=== PATIENT | female | born 1990 | race Caucasian/White ===

== ENCOUNTER → 2017-04-29 11:53 | Outpatient (CLI) | payer MEDICAID, SELFPAY ==
[2017-05-07 03:07] LABS: AFP MoM Value 1.67 (.); AFP Value-EIA 59.5 ng/mL (.); Comment Report (.); DIA MoM Value 2.74 (.); DIA Value-EIA 541.37 pg/mL (.); DSR (By Age) 930 (.); DSR (Second Trimester) 1756 (.); Gestat. Age Based On As provided (.); Insulin Dep Diabetes No (.); Maternal Age At EDD 26.9 YEARS (.); hCG MoM 0.94 (.)
== END ==
PROVIDERS: Visit Provider Obstetrics & Gynecology
DX: Z34.82 Encounter for supervision of other normal pregnancy, second trimester (principal); R30.0 Dysuria; Z3A.00 Weeks of gestation of pregnancy not specified
CPT/HCPCS: 36415; 82105; 82677; 84702; 86336; 87086; 87088

== ENCOUNTER 2017-06-02 20:37 | Outpatient (CLI) | payer MEDICAID, SELFPAY ==
[2017-06-02 20:56] VITALS: BMI 22.5
[2017-06-02 21:56] LABS: ROM Internal Control Test YES-OK TO RESULT pt. (Internal QC); ROM Patient Test Negative (Negative)
--- NOTE | 2017-06-03 02:40 | OB.TRI.NOTE ---
History of Present Illness Date of Service: 06/02/17 Was patient seen by the physician?: No Reason For Visit: R/O LABOR Date of Service: 06/02/17 Final SEVERO: 10/18/17 Gestational age: 20 Weeks and 3 Days History of Present Illness: Reports leaking fluid since yesterday. Home Medications Medication Instructions Recorded Azithromycin [Zithromax Z-Joaquin] 250 mg PO UD #1 box 02/12/17 Naproxen [Naprosyn] 500 mg PO BID #10 tablet 02/12/17 Allergies fexofenadine HCl [From Melyssa] Adverse Reaction (Verified 12/13/16 14:28) Vomiting no allergy to tylenol hydrocodone bitartrate [From Vicodin] Adverse Reaction (Verified 12/13/16 14:28) Itching Physical Exam General: Alert, Oriented x3, Cooperative, No apparent distress Cardiovascular: Regular rate, Regular Rhythm Lungs: Clear to auscultation, Normal air movement Abdomen: Soft, Non Tender, Non-Distended, Gravid, Appropriate for Gestational Age Extremities:: No edema Estimated gestational size: Appropriate for gestational size Cervix Dilation (cm): 0 NST - FHR Rate Baby A Baseline: 130s NST Reactive:: Appropriate for gestational age Uterine Activity:: none Impression/Plan ROM + testing negative. Likely no PPROM. No evidence of gross rupture on exam. Will followup in the office.
== END 2017-06-02 22:15 | disposition home or self-care (01) ==
LOC: WPOUT 20:53 → WP 20:54
PROVIDERS: Visit Provider Obstetrics & Gynecology
DX: Z34.92 Encounter for supervision of normal pregnancy, unspecified, second trimester (principal); Z3A.00 Weeks of gestation of pregnancy not specified
CPT/HCPCS: 59050; 84112; 99218; G0378

== ENCOUNTER 2017-06-05 13:40 | Emergency (ER) | payer MEDICAID, SELFPAY ==
[2017-06-05 13:41] VITALS: BP 123/75; PULSE 93; RESP 16; TEMP 36.2; O2SAT 99; BMI 21.1
--- NOTE | 2017-06-05 14:00 | ED.VISSUMM ---
- ER Visit Summary Date of Service: 06/05/17 Chief Complaint: [] Dental pain History of Present Illness: The patient is a 26 F [] complaining of dental pain in the left lower and upper aspect of her posterior teeth. Patient reports she saw her dentist 4 days ago who did some work and has had some discomfort since then. She reports she is 22 weeks has been taking Tylenol every 4 hours without relief. Denies fevers. Denies nausea and vomiting. No other complaints at this time. She does report that she is smoking during . Physical Examination: [] Afebrile, vital signs stable. 26-year-old female in no acute distress. Cardiovascular exam is regular rate and rhythm. Lungs are clear to auscultation. Abdomen is soft and nontender. HEENT exam shows focal dental decay without obvious gingival abscess and slight gingival swelling on the left side. Test Results: [] None. Emergency Department Course and Treatment: [] Patient given 1 oxycodone tablet and 1 Pen-Vee K tablet. Prescription for Pen-Vee K was provided. Patient was encouraged to follow-up with her dentist. Treatment Plan: [] Follow-up with dentist and [facility]. Disposition: [] Discharge, stable. Impression: [] Odontalgia Dental caries This note was generated with [employer] dictation software. It may contain incorrect words, spelling, and punctuation that were not noted in review of the chart prior to signing ED Disposition - Plan for ED Patient: Chief Complaint: Dental Referrals: Care Physician,No Primary [Primary Care Provider] -
--- NOTE | 2017-06-05 14:03 | ED.DCSUM_ITS ---
- ER Visit Summary Date of Service: 06/05/17 Chief Complaint: [] Dental pain History of Present Illness: The patient is a 26 F [] complaining of dental pain in the left lower and upper aspect of her posterior teeth. Patient reports she saw her dentist 4 days ago who did some work and has had some discomfort since then. She reports she is 22 weeks has been taking Tylenol every 4 hours without relief. Denies fevers. Denies nausea and vomiting. No other complaints at this time. She does report that she is smoking during . Physical Examination: [] Afebrile, vital signs stable. 26-year-old female in no acute distress. Cardiovascular exam is regular rate and rhythm. Lungs are clear to auscultation. Abdomen is soft and nontender. HEENT exam shows focal dental decay without obvious gingival abscess and slight gingival swelling on the left side. Test Results: [] None. Emergency Department Course and Treatment: [] Patient given 1 oxycodone tablet and 1 Pen-Vee K tablet. Prescription for Pen- Vee K was provided. Patient was encouraged to follow-up with her dentist. Treatment Plan: [] Follow-up with dentist and [facility]. Disposition: [] Discharge, stable. Impression: [] Odontalgia Dental caries This note was generated with [employer] dictation software. It may contain incorrect words, spelling, and punctuation that were not noted in review of the chart prior to signing ED Disposition - Plan for ED Patient: Chief Complaint: Dental Referrals: Care Physician,No Primary [Primary Care Provider] -
--- NOTE | 2017-06-05 14:03 | ED.DEP ---
ED Disposition - Plan for ED Patient: Disposition: Home or Assisted Living Chief Complaint: Dental Instructions: ED Tooth Pain Prescriptions: Penicillin Vk [Pen-Vee K 250MG] 500 mg PO 4X/DAY #40 tab Referrals: Care Physician,No Primary [Primary Care Provider] -
[2017-06-05] MEDS: Penicillin Vk 250 MG Tablet 500 MG PO (14:08)
[2017-06-05] MEDS: oxyCODONE 5 MG Tablet PO (14:08)
== END 2017-06-05 14:23 | disposition home or self-care (01) ==
LOC: ED 14:20
PROVIDERS: Emergency Provider Emergency Medicine
DX: O99.612 Diseases of the digestive system complicating pregnancy, second trimester (principal); K02.9 Dental caries, unspecified; K08.89 Other specified disorders of teeth and supporting structures; O99.332 Smoking (tobacco) complicating pregnancy, second trimester; Z79.899 Other long term (current) drug therapy; Z3A.22 22 weeks gestation of pregnancy
CPT/HCPCS: 99283

== ENCOUNTER → 2017-07-19 10:03 | Outpatient (CLI) | payer MEDICAID, SELFPAY ==
[2017-07-19 11:02] LABS: Glucose Challenge Gest 1H 50g 121 mg/dL (70-140); Hematocrit 36.4 % (37-47); Hemoglobin 12.6 g/dl (12.0-15.0); Mean Corp Hgb Conc 34.6 g/gl (32-36); Mean Corpuscular Hgb 32.3 pg (27.0-32.0); Mean Corpuscular Volume 93.3 fL (81-99); Mean Platelet Vol. 10.5 fl (6.2-12.0); Platelet Count 181 K/mm3 (150-450); RBC Distribution Width CV 13.4 % (11.6-14.6); White Blood Count 12.2 K/mm3 (4.4-11.0)
[2017-07-19 11:03] LABS: Scan Indicated on CBC? Y/N NO
== END ==
PROVIDERS: Visit Provider Obstetrics & Gynecology
DX: Z34.82 Encounter for supervision of other normal pregnancy, second trimester (principal)
CPT/HCPCS: 36415; 82950; 85027

== ENCOUNTER 2017-08-05 10:40 | Outpatient (RCR) | payer MEDICAID, SELFPAY ==
--- NOTE | 2017-08-05 13:17 | HP.PTEVAL_ITS ---
Patient's Visit Information YAEL HALLMAN is a 26 year old F referred to Physical Therapy by Chad Fuentes with a diagnosis of BACK AND HIP PAIN IN . Date of Evaluation: 08/05/17 Physical Therapist: Vinita Morgan - Visit Plan Frequency: 2-3x /Week Duration: 4-6 Weeks Plan: AQUATIC THERAPY FOR PAIN RELEIF, POSTURE CORRECTION/STRENGTHENING, INSTRUCTION IN APPROPRIATE BODY MECHANICS AND ACTIVITY MODIFICATIONS. DLS STARTING WITH A NEUTRAL SPINE PROGRESSING ROM TOLERATED. ANGLE LE ROM, STRETCHING AND STRENGTHENING. HEP INSTRUCTION. - Subjective Subjective: Diagnosis: BACK AND HIP PAIN IN (CURRENTLY 30 WEEKS). Work/Leisure: WORKING AT [employer] 9-12 HOURS A WEEK. Disability: NO. Present symptoms: ANGLE LOW BACK, HIP AND THIGH PAIN. NO NUMBNESS OR TINGLING. Present since: COUPLE OF MONTHS. Pain Scale: WORST 7/10, LEAST 3/ 10. Currently: 4/10. Commenced as a result of: . Symptoms at onset : HIPS AND BACK. Worse: UP MOVING AROUND. Better: LYING DOWN. Disturbed sleep: NO. Previous history/Previous treatment: LONG HISTORY OF BACK PAIN. HIP PAIN IS NEW. HOME STRETCHING. TYLONOL. CHIROPRACTOR X 2 VISITS. Coughing /sneezing/straining: NEGATIVE. Gait: PATIENT REPORTS WALKING MAKES HER HIPS HURT AND SHE IS STARTING TO WADDLE. STATES SHE GETS TIRED REALLY FAST. NO USING ANY AD'S. Difficulty initiating urinatin: NO. Accidents: NO. Unexplained weight loss: NO. Imaging: NO. PMH: HIATIAL HERNIA, RLS. Recent major surgery: UNREMARKABLE. OTHER: NO LIFTING > 20 LBS PER OBGYN - PATIENT REPORTS THIS IS IMPOSSIBLE. - Objective Sitting Posture: POOR. Standing Posture: POOR. Lordosis: NORMAL. Lateral shift: NO. Relevant shift: N/A. Active Correction of posture: BETTER. Other Observations: INDEP GAIT INTO PT WITH AD BUT WITH DECREASED CADANCE AND DECREASED ANGLE TRUNK ROTATION. Motor deficit: ANGLE LE'S 5/5 WITH MMT'ING. Sensory deficit: ANGLE LE LIGHT TOUCH SENSATION IS INTACT AND SYMMETRICAL. ROM deficit: ANGLE LE'S WFL. Reflexes: ANGLE LE'S 2/3. Dural Signs: NEGATIVE ANGLE LE' S. Lumbar mvmt loss: flex - NIL. ext - MIN. R SG - MIN. L SG - MIN. PATIENT C/O LBP BUT NOT HIP PAIN WITH LUMBAR ROM TESTING ALL PLANES. Core strength: POOR. Palpation: NO ACUTE TENDERNESS WITH PALPATION OF HIPS OR BACK. - Goals Goal 1:: DECREASE C/O BACK AND HIP PAIN Goal Time Frame: 4-6 Weeks Goal 2:: IMPROVE PERSONAL CARE, LIFITING, WALKING, STANDING, SOCIAL LIFE AND HOMEMAKING FUNCTION Goal Time Frame: 4-6 Weeks Goal 3:: INSTRUCT IN PROPHYLAXIS Goal Time Frame: 4-6 Weeks - Rehabilitation Potential Rehabilitation Potential: Good - Anticipated Interventions Patient/Client Instruction: Educate patient on: Condition, Plan of Care, Risk Factors, Benefits of Fitness Program For the Purpose of:: To improve self management Therapeutic Exercise to Include: Strength training, Body mechanics, Postural training, In an aquatic setting, Dynamic Lumbar Stabilization For the Purpose of:: To decrease pain, To improve muscle performance and motor function, To increase tolerance to activity/condition/position, To improve ability of physical actions for home/community/work/leisure, To improve gait and locomotor functions Thank you for the opportunity to evaluate your patient. For Medicare and Medicare HMO plans, please review the plan of care and approve it. It will need to be FAXED BACK to us at [phone] for Medicare purposes. Please let me know if there are questions or concerns regarding this plan of care. Physician Signature: Date:
--- NOTE | 2018-01-13 12:56 | HP.PT.NRP ---
HP - Discharge Summary (1) - Patient Information YAEL HALLMAN was seen in my office for initial evaluation on 08/05/17. The following Plan of Care was established for this patient: Initial Frequency: 2-3x /Week Initial Duration: 4-6 Weeks - Anticipated Interventions Patient/Client Instruction: Educate patient on: Condition, Plan of Care, Risk Factors, Benefits of Fitness Program For the Purpose of:: To improve self management Therapeutic Exercise to Include: Strength training, Body mechanics, Postural training, In an aquatic setting, Dynamic Lumbar Stabilization For the Purpose of:: To decrease pain, To improve muscle performance and motor function, To increase tolerance to activity/condition/position, To improve ability of physical actions for home/community/work/leisure, To improve gait and locomotor functions This patient was last seen in our office 08/05/17. Pertinent comments regarding their Physical therapy will appear below: This patient has not returned to Physical Therapy and is appropriate to return to MD for further follow-up as needed. At this point I will be discontinuing this patient from physical therapy. I would be happy to see this patient again in the future if found appropriate by the physician. Thank you! Vinita Morgan
== END 2017-08-05 19:00 | disposition home or self-care (01) ==
LOC: PT 10:40
PROVIDERS: Visit Provider Obstetrics & Gynecology
DX: O99.89 Other specified diseases and conditions complicating pregnancy, childbirth and the puerperium (principal)
CPT/HCPCS: 97162; 97530

== ENCOUNTER 2017-08-11 23:58 | Emergency (ER) | payer MEDICAID, SELFPAY ==
[2017-08-11 23:58] VITALS: BP 125/78; PULSE 89; RESP 18; TEMP 36.6; O2SAT 99; BMI 22.9
--- NOTE | 2017-08-12 00:14 | ED.DCSUM_ITS ---
- ER Visit Summary Date of Service: 08/12/17 Chief Complaint: [Dental pain] History of Present Illness: The patient is a 26 F [presents to the emergency department with dental pain that started 3 days ago. Patient was seen in the emergency department at [facility] and started on penicillin at that time. Patient continues to have pain and called the dentist today but the office was closed. Patient denies any fever. Patient is 31 weeks .] Physical Examination: [HEENT-PERRLA, EOMI. Cranial nerves II through XII grossly intact. TMs clear. Mucous membranes moist. No adenopathy. No facial erythema or cellulitis noted. There is no facial swelling. Patient has tenderness to palpation over the left lower premolar without evidence of abscess. No adenopathy. Cardiovascular-regular rate and rhythm without murmur or ectopy Lungs-clear to auscultation, chest wall stable without crepitus or subcu emphysema Abdomen-normoactive bowel sounds, soft, nontender, no rebound or rigidity, no peritoneal signs. Extremities-intact ?4, normal range of motion, normal pulses, atraumatic] Test Results: [None indicated] Emergency Department Course and Treatment: [Patient will be given a prescription for oxycodone for pain.] I did perform on oars report and patient' s last narcotic prescription was in October 2016. Treatment Plan: [Patient advised to follow-up with her dentist.] Disposition: [Discharged home in stable condition] Impression: [Dental pain] This note was generated with [employer] dictation software. It may contain incorrect words, spelling, and punctuation that were not noted in review of the chart prior to signing ED Disposition - Plan for ED Patient: Chief Complaint: Dental Referrals: Care Physician,No Primary [Primary Care Provider] -
--- NOTE | 2017-08-12 00:14 | ED.DEP ---
ED Disposition - Plan for ED Patient: Chief Complaint: Dental Instructions: ED Tooth Pain Prescriptions: Oxycodone HCl/Acetaminophen [Percocet 5/325] 1 tab PO Q6H PRN PRN 3 Days #12 tab PRN Reason: Pain Referrals: Care Physician,No Primary [Primary Care Provider] - Additional Instructions: see your dentist
[2017-08-12] MEDS: oxyCODONE 5 MG Tablet PO (00:20)
[2017-08-12 00:23] VITALS: BP 125/78; PULSE 89; RESP 18; O2SAT 98
== END 2017-08-12 00:24 | disposition home or self-care (01) ==
LOC: ED 08-12 00:11
PROVIDERS: Emergency Provider Emergency Medicine
DX: O99.62 Diseases of the digestive system complicating childbirth (principal); K08.89 Other specified disorders of teeth and supporting structures; K21.9 Gastro-esophageal reflux disease without esophagitis; O99.333 Smoking (tobacco) complicating pregnancy, third trimester; O99.343 Other mental disorders complicating pregnancy, third trimester; F41.9 Anxiety disorder, unspecified; Z79.899 Other long term (current) drug therapy; Z3A.31 31 weeks gestation of pregnancy
CPT/HCPCS: 99282

== ENCOUNTER 2017-09-03 23:20 | Outpatient (CLI) | payer MEDICAID, SELFPAY ==
--- NOTE | 2017-09-03 23:20 | DT_ITS ---
This patient was seen during an EMR downtime August 30, 2017 - September 06, 2017. This patient may have a combination of paper and electronic documentation or all paper documentation. All documentation is viewable within the e-chart portion of [facility] for each patient visit.
== END 2017-09-04 00:20 | disposition home or self-care (01) ==
LOC: WPOUT 09-04 08:27 → WP 09-04 08:28
PROVIDERS: Visit Provider Obstetrics & Gynecology
DX: O26.893 Other specified pregnancy related conditions, third trimester (principal); M25.559 Pain in unspecified hip; Z3A.34 34 weeks gestation of pregnancy; Z91.81 History of falling
CPT/HCPCS: 59025; 59050; 99218; G0378

== ENCOUNTER 2017-09-04 01:21 | Emergency (ER) | payer MEDICAID, SELFPAY ==
--- NOTE | 2017-09-04 01:21 | DT_ITS ---
This patient was seen during an EMR downtime August 30, 2017 - September 06, 2017. This patient may have a combination of paper and electronic documentation or all paper documentation. All documentation is viewable within the e-chart portion of [facility] for each patient visit.
== END 2017-09-04 03:27 | disposition home or self-care (01) ==
LOC: ED 09-05 11:46
PROVIDERS: Emergency Provider Emergency Medicine
DX: O26.893 Other specified pregnancy related conditions, third trimester (principal); Z3A.34 34 weeks gestation of pregnancy; S39.011A Strain of muscle, fascia and tendon of abdomen, initial encounter; W18.40XA Slipping, tripping and stumbling without falling, unspecified, initial encounter; Y93.01 Activity, walking, marching and hiking; Y92.008 Other place in unspecified non-institutional (private) residence as the place of occurrence of the external cause; Y99.8 Other external cause status
CPT/HCPCS: 99282

== ENCOUNTER → 2017-09-21 11:23 | Outpatient (CLI) | payer MEDICAID, SELFPAY ==
[2017-09-21 14:34] LABS: Group B Strep DNA By PCR Negative (Negative); Internal Control PASS; Probe Check PASS; Specimen Processing Control PASS
== END ==
PROVIDERS: Visit Provider Obstetrics & Gynecology
DX: Z36.85 Encounter for antenatal screening for Streptococcus B (principal)
CPT/HCPCS: 87081; 87653

== ENCOUNTER 2017-09-27 12:20 | Inpatient (IN) | payer MEDICAID, SELFPAY ==
[2017-09-27 11:51] VITALS: BMI 23.9
[2017-09-27] MEDS: Lactated Ringers 1,000 ML 50 ML IV (12:10)
[2017-09-27 12:59] LABS: Hematocrit 34.7 % (37-47); Mean Corp Hgb Conc 34.6 g/gl (32-36); Mean Corpuscular Hgb 31.2 pg (27.0-32.0); Mean Corpuscular Volume 90.1 fL (81-99); Mean Platelet Vol. 11.9 fl (6.2-12.0); Platelet Count 245 K/mm3 (150-450); RBC Distribution Width CV 13.1 % (11.6-14.6); Red Blood Count 3.85 M/mm3 (4.2-5.4); Scan Indicated on CBC? Y/N NO; White Blood Count 16.9 K/mm3 (4.4-11.0)
[2017-09-27] MEDS: fentaNYL-bupivacaine (epidural) 100 ML BAG EPIDURAL (13:55)
[2017-09-27] MEDS: Oxytocin 30 units/NS 500 ml 30 UNITS/500 ML IV.SOLN 334 UNITS IV (16:26)
--- NOTE | 2017-09-27 16:38 | PCM.OB.VAG ---
Vaginal Delivery Maternal Presentation: Active Labor Amniotic Membrane Rupture Type: Artificial Amniotic Fluid Description: Clear Final SEVERO: 10/14/17 Final SEVERO Source: US <20 weeks Gestational age: 37 Weeks and 4 Days Date of Procedure: 09/27/17 Pre-Operative Diagnosis: IUP Post-Operative Diagnosis: IUP Surgery/ Procedure Performed: Spontaneous Vaginal Delivery Type of Anesthesia: Epidural Description of Procedure: Spontaneous vaginal delivery of a viable male with Apgars of 9/9 with a normal three-vessel placenta from an occiput anterior presentation. No episiotomy or laceration. Sponge counts okay. Delivery physician: Alexis Lundberg MD. Presentation: Vertex Placental Delivery Description: Spontaneous Placenta Disposition: [facility] Cord Vessel Description: 3 Vessels Cord Gases drawn per routine: ABG Cord Entanglement: None Estimated Blood Loss: 250 cc A gender: Male (1 minute): 9 (5 minute): 9 Episiotomy Description: None Laceration: None Medications given after delivery: IV Pitocin Complications: None
--- NOTE | 2017-09-27 16:41 | OP.PCM_ITS ---
Vaginal Delivery Maternal Presentation: Active Labor Amniotic Membrane Rupture Type: Artificial Amniotic Fluid Description: Clear Final SEVERO: 10/14/17 Final SEVERO Source: US <20 weeks Gestational age: 37 Weeks and 4 Days Date of Procedure: 09/27/17 Pre-Operative Diagnosis: IUP Post-Operative Diagnosis: IUP Surgery/ Procedure Performed: Spontaneous Vaginal Delivery Type of Anesthesia: Epidural Description of Procedure: Spontaneous vaginal delivery of a viable male with Apgars of 9/9 with a normal three-vessel placenta from an occiput anterior presentation. No episiotomy or laceration. Sponge counts okay. Delivery physician: Alexis Lundberg MD. Presentation: Vertex Placental Delivery Description: Spontaneous Placenta Disposition: [facility] Cord Vessel Description: 3 Vessels Cord Gases drawn per routine: ABG Cord Entanglement: None Estimated Blood Loss: 250 cc Infant A gender: Male (1 minute): 9 (5 minute): 9 Episiotomy Description: None Laceration: None Medications given after delivery: IV Pitocin Complications: None
--- NOTE | 2017-09-27 16:42 | DCINST_ITS ---
Discharge Diet: No Restrictions Discharge Activity: May Shower, May Take a Tub Bath May resume sexual activity in: 4-6 weeks Additional Activity Instructions:: Nothing in the vagina for 4-6 weeks. You may return to work/school in 6 weeks. Call your doctor if you observe: Fever of 101 or Higher, Inability to urinate, Inability to have a bowel movement, Using more than one pad per hour Additional Instructions: If you experience any of the following, contact your healthcare provider. * Bleeding that soaks a pad every hour for 2 hours * Unrelieved incision or abdominal pain * Swelling, redness, discharge or bleeding from your incision or episiotomy site * Your incision begins to separate * Problems urinating (including inability to urinate or burning while urinating) . * Visual changes * Severe headache * Flu-like symptoms * Pain or redness in one of both of your breasts * Pain, warmth, tenderness or swelling in your legs, especially the calf area * Frequent nausea and vomiting * Symptoms of depression or anxiety If you experience any of the following, call 911 or go to the nearest Emergency Room. * Chest pain * Problems breathing * Seizure activity * Partial or complete paralysis of a body part, slurred speech, weakness or drooping of the face, or a sudden inability to walk or hold your balance Allergies/Adverse Reactions: Allergies fexofenadine HCl [From Melyssa] Adverse Reaction (Verified 08/12/17 00:00) Vomiting no allergy to tylenol hydrocodone bitartrate [From Vicodin] Adverse Reaction (Verified 08/12/17 00:00) Itching Medications to take at Discharge Pnv No.122/Iron/Folic Acid [ Multi Tablet] 1 each PO QHS 06/05/17 proMETHazine tablet [Phenergan] 25 mg PO QHS 06/05/17 Pantoprazole Sodium [Protonix] 20 mg PO DAILY 08/12/17 Please Follow Up With: Chad Fuentes MD - [phone] When: Call to make an appointment with your doctor in 6 weeks. Primary Care Physician: Care Physician,No Primary [Primary Care Provider] - Test Results:
[2017-09-27] MEDS: Oxytocin 30 units/NS 500 ml 30 UNITS/500 ML IV.SOLN 167 UNITS IV (16:56)
[2017-09-27 19:50] VITALS: BP 101/57; PULSE 63; RESP 16; TEMP 36.2; O2SAT 97
[2017-09-27] MEDS: Ibuprofen 600 MG Tablet PO (20:07)
[2017-09-28] VITALS: BP 100/50; PULSE 60; RESP 16; TEMP 36.6
[2017-09-28] MEDS: Acetaminophen 500 MG Tablet 1000 MG PO (00:38)
[2017-09-28] MEDS: oxyCODONE 5 MG Tablet PO ×4 (03:01→19:51)
[2017-09-28 03:15] VITALS: BP 102/58; PULSE 57; RESP 16; TEMP 36.4
[2017-09-28] MEDS: Ibuprofen 600 MG Tablet PO ×3 (05:21→18:33)
--- NOTE | 2017-09-28 08:20 | PCM.PN.OB ---
Subjective: No specific complaints. Bleeding light. Breast feeding. Objective: Afeb VSS - Physical Exam General: Alert, Oriented x3, Cooperative, No apparent distress Lungs: Clear to auscultation, Normal air movement Cardiovascular: Regular rate, Regular Rhythm Abdomen: Soft, Non Tender, Non-Distended Extremities: No edema, No Calf Tenderness Skin: No rashes Neurological: Neuro grossly intact Psych/Mental Status: Normal Affect Comment: Lochia light Vital Signs Temp Pulse Resp BP Pulse Ox 97.5 F L 57 L 16 102/58 L 97 09/28/17 03:15 09/28/17 03:15 09/28/17 03:15 09/28/17 03:15 09/27/17 19:50 Oxygen Delivery Method Room Air Weight: 157 lb 10.088 oz Body Mass Index (BMI) 23.9 Intake and Output for Last 24 Hours 09/26/17 09/27/17 09/28/17 23:59 23:59 23:59 Intake Total 1914 / 1914 Output Total 1700 / 1700 Balance 214 / 214 Laboratory Tests Past 24 Hrs 09/27/17 09/27/17 12:30 12:30 WBC 16.9 H RBC 3.85 L Hgb 12.0 Hct 34.7 L MCV 90.1 MCH 31.2 MCHC 34.6 RDW 13.1 RDW Differential 42.0 Plt Count 245 MPV 11.9 Blood Type O POSITIVE Antibody Screen NEGATIVE Medical Necessity - Tobacco Use Smoking Status: Light Smoker (<10/day) Assessment/Plan Doing well on PP day#1. Continue routine PP care.
[2017-09-28 08:30] VITALS: BP 107/79; PULSE 58; RESP 16; TEMP 36.6; O2SAT 98
[2017-09-28] MEDS: Pantoprazole Sodium 20 MG Tablet PO (09:57)
[2017-09-28] MEDS: Prenatal Vits Tablet 1 TABLET PO (11:57)
[2017-09-28 14:20] VITALS: BP 109/73; PULSE 78; RESP 18; TEMP 36.5; O2SAT 99
--- NOTE | 2017-09-28 15:20 | CASEMGMT ---
Social Work Assessment Labor and Delivery Unit Date of Referral: 09/27/2017 Time of Referral: 2022 Referred By: Dr. De Santiago Date of Intervention: 09/28/2017 Time of Intervention: 1520 Reason for Referral: Maternal marijuana use and history of anxiety and panic attacks. History obtained from: Medical record, mother of baby (MOB) Mary Espinoza; with MOBs permission the reported father of baby (FOB) Abhijit May also present for part of conversation Household composition: MOB, FOB, and older children live in home. MOB reports home situation is safe and adequate, denies any safety concerns. MOB report her MOB is staying at the home until November to help MOB out with transition. Patient's parent/guardian status: MOB (age 26) and FOB (age 28) have been together for almost 11 years. MOB denies any safety concerns or history of abuse with Abhijit. MOB and FOB now have three children together: Chico July (born 09/2009), Taylor July (born 12/2013) and Alexis July (born 09/27/2017). Medical History: PARVIN is G3, P2 to 3 after delivering . care started at 9 weeks gestation. PARVIN delivered infant at 37 weeks gestation. weight 2992 grams, and Apgars 9 and 9 at 1 and 5 minutes of life. PARVIN is planning to breast feed . Educational Status: PARVIN graduated high school, is able to read, write, and to understand what is read. 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 Financial Status: DALJIT works for a [employer]. 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 Infant Supplies: MOB reports to have needed supplies including crib, rock-n-play, clothing, diapers, wipes, bottles, breast pump, and car seat. Childcare/Caregiver(s): MOB primarily but will have help from family when needed. Transportation: No reported issues, both MOB and FOB report to drive. Programs/Agencies Involved: [facility], and does have WIC. No other agency involvement, though [facility] . Children Services/Legal Issues: MOB and FOB both report history of [facility] ([facility] after the of Taylor, related to marijuana exposure during . MOB reports the case was open only a short time, only having one in home visit during the time the case was opened. MOB denies any other [facility] involvement outside of this one time. No reported legal issues. Behavioral Health Issues: Mental Health History: MOB with history of depression, anxiety, panic attacks, and past record indicates some depression. MOB has history of treatment with antidepressant medication of Prozac and then Klonopin for anxiety. MOB reports did not take the klonopin during as did not feel this was appropriate for the baby, and stopped the antidepressant due to not know if it was safe or not. MOB reports history of treatment at [facility], but has not gone in some time. Family History: Record indicates MOB with history in family, an uncle with alcohol issues, and a cousin with heroin addiction. Substance Use History: MOB denies alcohol use or abuse history, denies drinking during . MOB denies any history of use of heroin, cocaine, methamphetamines, narcotics pills not prescribed. MOB does admit to use of marijuana and did use during this to help manage anxiety. MOB reports felt this was safer for the baby than prescribed medications. MOB reports marijuana also helped with nausea. Last use reported to be a couple of weeks ago. MOB does smoke tobacco. MOB reports was prescribed Percocet from [facility] Emergency Department due to dental pain. MOB reports last use of pain pills was a couple of months ago, and that did not take all of the medication that was even prescribed. FOB made comment that MOB flushed most of the prescription down the toilet. Drug Screens: MOB with positive drug screen on 03-12-17 for marijuana. No subsequent testing noted. Babys urine drug screen is positive for marijuana at delivery. Meconium is pending. Family/Social Stressors: MOBs [id number] last year, which is reported to be stressful for the family. MOB also had pain issues related to poor dentition on , reporting that had 8 abscesses this and a couple of root canals. MOB with history of depression and anxiety, off of medication during this , and not in any supportive counseling at this time. MOB endorses use of marijuana to manage emotional health symptoms during this . was unplanned but accepted and wanted. Support Systems: MOB reports both MOBs and FOBs grandmothers are a good support to the family system. MOB reports her mother will be staying in the home until November to help out and reports this will be a help. MOB reports FOB is also a help when at home. : ASSESSMENT: Talked with MOB alone addressing safety in the home, and MOB also stated okay if FOB comes in to discuss mental health and substances, if in midst of such when FOB returns to room. MOB cooperative and friendly overall, though did become distressed when talking about babys positive drug screen and impending children services involvement. MOB started to cry at this juncture and was pointed in discussion that feeling frustrated. MOB reports perception that other people are doing heavier drugs, doing worse things than MOB, and have their kids and no children services involvement. MOB also expressed irritability about baby having AIDAN scoring due to prescribed narcotics. FOB during this time was reassuring to MOB, reminding MOB that has been through this before, that home is clean and parents are able to provide for the children. FOB holding baby during this time, displaying appropriate interactions with baby. Educated MOB and FOB that AIDAN scoring is a standard protocol, one to help safety of baby rather than punitive towards the mother. Acknowledged MOBs feelings and emotions, but attempted to help reframe to why protocols and standards are in place. Supportive listening and reflection offered. MOB does reports to have needed supplies for baby, reports to have help at home going, and reports intent to make self own appointment at [facility]. MOB educated to marijuana passing through breast milk and encouraged MOB to think about further use of this substance while breast feeding, encouraging MOB to seek out support and treatment with mental health providers. No reports of any suicidal thoughts, plans, or intent or thoughts of harm to others. MOB and FOB both aware of shaken baby and safe sleeping. Talked with MOB and FOB about depression, being at higher risk due to history, having symptoms during , and stressors in the last year or so. MOB reports intent to call [facility] on own to get an appointment, as will want to get restarted on medications. PLAN: MOB and baby to home at time of discharge. Will be making a call to [facility] due substance exposed infant in utero, though unless something urgent or concerning pops up during hospital stay, MOB would be taking baby home with CS to follow up in the community. Will monitor for meconium drug screens as well. MOB was given packet on depression and [facility] resource packet. -JALEN Agosto, CARPET JACK
[2017-09-28 19:50] VITALS: BP 98/62; PULSE 74; RESP 18; TEMP 36.4; O2SAT 98
[2017-09-29] MEDS: Ibuprofen 600 MG Tablet PO ×3 (01:17→16:15)
[2017-09-29 01:30] VITALS: BP 116/73; PULSE 84; RESP 18; TEMP 36.7; O2SAT 99
[2017-09-29] MEDS: oxyCODONE 5 MG Tablet PO ×4 (02:41→17:58)
[2017-09-29] MEDS: Prenatal Vits Tablet 1 TABLET PO (08:00)
[2017-09-29] MEDS: Pantoprazole Sodium 20 MG Tablet PO (08:01)
[2017-09-29 08:19] VITALS: BP 107/70; PULSE 71; RESP 16; TEMP 36.4; O2SAT 98
--- NOTE | 2017-09-29 08:43 | PCM.PN.OB ---
Subjective: Some soreness but overall doing well. Breast feeding. Bleeding light. Objective: Afeb VSS - Physical Exam General: Alert, Oriented x3, Cooperative, No apparent distress Lungs: Clear to auscultation, Normal air movement Cardiovascular: Regular rate, Regular Rhythm Abdomen: Soft, Non Tender, Non-Distended Extremities: No edema Skin: No rashes Neurological: Neuro grossly intact Psych/Mental Status: Normal Affect Comment: Lochia light Vital Signs Temp Pulse Resp BP Pulse Ox 97.6 F L 71 16 107/70 98 09/29/17 08:19 09/29/17 08:19 09/29/17 08:19 09/29/17 08:19 09/29/17 08:19 Oxygen Delivery Method Room Air Weight: 157 lb 10.088 oz Body Mass Index (BMI) 23.9 Intake and Output for Last 24 Hours 09/27/17 09/28/17 09/29/17 23:59 23:59 23:59 Intake Total 1914 / 1914 Output Total 1700 / 1700 Balance 214 / 214 Medical Necessity - Tobacco Use Smoking Status: Light Smoker (<10/day) Assessment/Plan Doing well on PP day#2. baby being held for observation due to Skdorcasr being prescribed percocet one time during third trimester for back pain. She is cleared for discharge today and will discharge to [facility] status. Hoem going instructions and warnings given.
--- NOTE | 2017-09-29 08:46 | PN.OBGYN_ITS ---
Subjective: Some soreness but overall doing well. Breast feeding. Bleeding light. Objective: Afeb VSS - Physical Exam General: Alert, Oriented x3, Cooperative, No apparent distress Lungs: Clear to auscultation, Normal air movement Cardiovascular: Regular rate, Regular Rhythm Abdomen: Soft, Non Tender, Non-Distended Extremities: No edema Skin: No rashes Neurological: Neuro grossly intact Psych/Mental Status: Normal Affect Comment: Lochia light Vital Signs Temp Pulse Resp BP Pulse Ox 97.6 F L 71 16 107/70 98 09/29/17 08:19 09/29/17 08:19 09/29/17 08:19 09/29/17 08:19 09/29/17 08:19 Oxygen Delivery Method Room Air Weight: 157 lb 10.088 oz Body Mass Index (BMI) 23.9 Intake and Output for Last 24 Hours 09/27/17 09/28/17 09/29/17 23:59 23:59 23:59 Intake Total 1914 / 1914 Output Total 1700 / 1700 Balance 214 / 214 Medical Necessity - Tobacco Use Smoking Status: Light Smoker (<10/day) Assessment/Plan Doing well on PP day#2. baby being held for observation due to Skdorcasr being prescribed percocet one time during third trimester for back pain. She is cleared for discharge today and will discharge to [facility] status. Hoem going instructions and warnings given.
--- NOTE | 2017-09-29 08:50 | DCINST_ITS ---
Discharge Diet: No Restrictions Discharge Activity: Return to Normal Activity, May Drive, May Shower, May Take a Tub Bath Return to work on:: 11/15/17 May shower in (days): 0 May resume sexual activity in: 4-6 weeks Additional Activity Instructions:: Nothing in the vagina for 4-6 weeks. You may return to work/school in 6 weeks. Call your doctor if your incision/area has: Sudden Increased Bleeding, Foul Smelling Discharge Call your doctor if you observe: Fever of 101 or Higher, Inability to urinate, Inability to have a bowel movement, Using more than one pad per hour, Shortness of breath, Chest pain, Calf discomfort, Uncontrolled pain Additional Instructions: If you experience any of the following, contact your healthcare provider. * Bleeding that soaks a pad every hour for 2 hours * Fever 100.4 or higher * Unrelieved incision or abdominal pain * Swelling, redness, discharge or bleeding from your incision or episiotomy site * Your incision begins to separate * Problems urinating (including inability to urinate or burning while urinating) . * Visual changes * Severe headache * Flu-like symptoms * Pain or redness in one of both of your breasts * Pain, warmth, tenderness or swelling in your legs, especially the calf area * Frequent nausea and vomiting * Symptoms of depression or anxiety If you experience any of the following, call 911 or go to the nearest Emergency Room. * Chest pain * Problems breathing * Seizure activity * Partial or complete paralysis of a body part, slurred speech, weakness or drooping of the face, or a sudden inability to walk or hold your balance Allergies/Adverse Reactions: Allergies fexofenadine HCl [From Melyssa] Adverse Reaction (Verified 08/12/17 00:00) Vomiting no allergy to tylenol hydrocodone bitartrate [From Vicodin] Adverse Reaction (Verified 08/12/17 00:00) Itching Medications to take at Discharge Pnv No.122/Iron/Folic Acid [ Multi Tablet] 1 each PO QHS 06/05/17 proMETHazine tablet [Phenergan tablet] 25 mg PO QHS 06/05/17 Pantoprazole Sodium [Protonix] 20 mg PO DAILY 08/12/17 Ibuprofen 600 mg PO Q6H PRN PRN #30 tab 09/29/17 The following prescriptions were given: Ibuprofen 600 mg PO Q6H PRN PRN #30 tab PRN Reason: Pain or cramping Please Follow Up With: Chad Fuentes MD When: 6 weeks Primary Care Physician: Care Physician,No Primary [Primary Care Provider] - Test Results: Proposed Discharge Date: 09/29/17
--- NOTE | 2017-09-29 08:50 | PCM.DC.SUM ---
Discharge Date and Diagnosis Date of Admission: 09/27/17 Date of Discharge: 09/29/17 - Primary Discharge Diagnosis s/p - Secondary Discharge Diagnosis Chronic Problems Pelvic pain (Chronic) Hospital Course and Treatment Consultations 09/27/17 12:28 Consult: Anesthesia Routine Comment: Reason For Exam: LABOR Operations: None Procedures: - - Epidural, Summary of Care Provided: The patient is a 26 year old F [admitted in active labor at 37w4d ega. Progressed to FD then pushed to deliver a live without complication. Post course unremarkable. Discharged home on PP day#2.] Discharge Diet: No Restrictions Discharge Activity: Return to Normal Activity, May Drive, May Shower, May Take a Tub Bath Return to work on:: 11/15/17 May shower in (days): 0 May resume sexual activity in: 4-6 weeks Additional Activity Instructions:: Nothing in the vagina for 4-6 weeks. You may return to work/school in 6 weeks. Call your doctor if your incision/area has: Sudden Increased Bleeding, Foul Smelling Discharge Call your doctor if you observe: Fever of 101 or Higher, Inability to urinate, Inability to have a bowel movement, Using more than one pad per hour, Shortness of breath, Chest pain, Calf discomfort, Uncontrolled pain Home Medications: Medications to take at Discharge Pnv No.122/Iron/Folic Acid [ Multi Tablet] 1 each PO QHS 06/05/17 proMETHazine tablet [Phenergan tablet] 25 mg PO QHS 06/05/17 Pantoprazole Sodium [Protonix] 20 mg PO DAILY 08/12/17 Ibuprofen 600 mg PO Q6H PRN PRN #30 tab 09/29/17 Following Prescrptions Were Given to Patient: Ibuprofen 600 mg PO Q6H PRN PRN #30 tab PRN Reason: Pain or cramping Primary Care Physician: Care Physician,No Primary [Primary Care Provider] - Please Follow Up With: Chad Fuentes MD When: 6 weeks Disposition: Home Minutes spent on discharge:: 15 Patient Condition:: Good Medical Necessity - Tobacco Use Smoking Status: Light Smoker (<10/day) Meaningful Use Info Meaningful Use Diagnoses (Choose all that apply): None applicable
[2017-09-29 15:16] VITALS: BP 99/62; PULSE 71; RESP 16; TEMP 36.8; O2SAT 98
--- NOTE | 2017-09-30 14:55 | CASEMGMT ---
Social Work Note Labor and Delivery Unit Patient/mother of baby (MOB) discharged to hotel status, remaining in the hospital until baby is discharged. Called [facility] ([facility]) and spoke with Ramiro for referral. 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 No other services requested or indicated, other than waiting for meconium drug screen results, which will be documented in the infant's chart. -SIGRID Agosto, INTERIOR SURFACE INSULATION WORKER
== END 2017-09-29 17:59 | disposition home or self-care (01) | DRG 373 ==
LOC: WPOUT 12:24 → WP 16:28
PROVIDERS: Admitting Provider Obstetrics & Gynecology; Visit Provider Obstetrics & Gynecology
DX: O99.334 Smoking (tobacco) complicating childbirth (principal); F17.200 Nicotine dependence, unspecified, uncomplicated; O99.62 Diseases of the digestive system complicating childbirth; K58.9 Irritable bowel syndrome, unspecified; K21.9 Gastro-esophageal reflux disease without esophagitis; Z79.899 Other long term (current) drug therapy; Z3A.37 37 weeks gestation of pregnancy; Z37.0 Single live birth
CPT/HCPCS: 59025; 59050; 85027; 86850; 86900; 99218; J7120; G0378

== ENCOUNTER → 2017-12-20 17:01 | Outpatient (CLI) | payer MEDICAID, SELFPAY ==
[2017-12-24 13:10] LABS: HPV Reflexed? NOT INDICATED
== END ==
PROVIDERS: Visit Provider Obstetrics & Gynecology
DX: Z12.4 Encounter for screening for malignant neoplasm of cervix (principal)
CPT/HCPCS: 88175; G0145

== ENCOUNTER 2017-12-22 05:50 | Day surgery (SDC) | payer MEDICAID, SELFPAY ==
[2017-12-20 12:39] LABS: Hemoglobin 14.1 g/dl (12.0-15.0); Mean Corp Hgb Conc 35.3 g/gl (32-36); Mean Corpuscular Hgb 31.4 pg (27.0-32.0); Mean Corpuscular Volume 89.1 fL (81-99); Mean Platelet Vol. 10.4 fl (6.2-12.0); Platelet Count 211 K/mm3 (150-450); RBC Distribution Width CV 14.1 % (11.6-14.6); RBC Distribution Width SD 45.2 fl (35.1-43.9); Red Blood Count 4.49 M/mm3 (4.2-5.4); White Blood Count 6.1 K/mm3 (4.4-11.0)
[2017-12-20 12:40] LABS: Scan Indicated on CBC? Y/N NO
[2017-12-20 12:49] LABS: International Normalized Ratio 1.1; Prothrombin Time (Protime)PT. 13.9 SECONDS (11.7-14.9)
[2017-12-20 12:50] LABS: Partial Thromboplast Time 33.4 Seconds (24.1-36.2)
[2017-12-20 13:13] LABS: Pregnancy, Serum, hCG Quali. NEGATIVE Negative (0-9 Nonpreg)
[2017-12-22] VITALS (7 sets, daily range): BP systolic 89–112; BP diastolic 48–77; PULSE 52–79; RESP 12–16; TEMP 36.3–36.8; O2SAT 93–99; BMI 21.2
[2017-12-22 06:21] LABS: Internal QC Validated? YES +Cl - CLEAR BKGD; Pregnancy, Urine Negative Negative
--- NOTE | 2017-12-22 07:30 | FALS_PTH ---
PATIENT: YAEL WOOTEN LOC: [facility] [place] U#:[id number] AGE/SX: 27/ ROOM: RE12/22/[address]: Dr. Chad Fuentes MD : 1990 BED: DIS: 12/22/2017 SPEC #: [id number] RECD: 12/22/17 10:27 STATUS: SKYLA JOSHUA #: [id number] KRISTINE: 12/22/17 07:[address]: Chad Fuentes DEPT: SURGICAL PATHOLOGY RECD BY: Radames Reeder ENTERED: 12/22/17 11:29 SP TYPE: FALL TUBES OTHR DR: No Primary Care Phys Tissues: Fallopian tube Procedures: Surgery Specimen Level II HEADER OPERATION: Laparoscopic salpingectomy PRE-OP DIAGNOSIS: Sterilization request TISSUE SUBMITTED: Bilateral fallopian tubes MICROSCOPIC DIAGNOSIS Bilateral fallopian tubes, salpingectomy: Bilateral fallopian tubes including fimbrial ends, no pathologic diagnosis. Bilateral paratubal cysts. SJ:guille 12/23/17 MICROSCOPIC DESCRIPTION Slides are reviewed. GROSS DESCRIPTION Received is one container labeled with the patient's name and designated bilateral fallopian tubes. The specimen consists of bilateral fallopian tubes including fimbrial ends measuring 6 cm in length and 0.5 cm in diameter. Sections do not reveal any mass lesion. The fallopian tubes are not identified as right or left. Sections reveal unremarkable cut surfaces. Also present in the container is a detached cyst measuring 1 x 0.5 x 0.5 cm. The cyst is filled with clear fluid. Fur Blower sections are submitted in two cassettes with each cassette containing one fallopian tube. Cassette #2 also contains the detached cyst. / YANET:guille 12/22/17 TC:5 CPT: 86770 x2
--- NOTE | 2017-12-22 07:39 | DCINST_ITS ---
You will use the following diet at home:: No restrictions Discharge Activity: Return to Normal Activity, May Drive, May not drive while t aking narcotic pain medications., May Shower Return to work on:: 12/27/17 May resume sexual activity in: 2 weeks Call your doctor if your incision/area has: Sudden Increased Bleeding, Increased Pain/ Swelling, Increased Redness, Foul Smelling Discharge, Swelling at the incision site Call your doctor if you observe: Fever of 101 or Higher, Inability to urinate, Inability to have a bowel movement, Using more than one pad per hour, Shortness of breath, Chest pain, Calf discomfort, Uncontrolled pain Remove Dressing in (days):: 2 Cleanse incision/area with: Soap & Water Allergies/Adverse Reactions: Allergies fexofenadine HCl [From Melyssa] Adverse Reaction (Verified 12/15/17 13:54) Vomiting no allergy to tylenol hydrocodone bitartrate [From Vicodin] Adverse Reaction (Verified 12/15/17 13:54) Itching Medications to take at Discharge Ibuprofen 600 mg PO 4X/DAY #30 tab 12/22/17 Oxycodone [Oxyir] 5 mg PO Q4H PRN PRN 7 Days #20 tab 12/22/17 The following prescriptions were given: Oxycodone [Oxyir] 5 mg PO Q4H PRN PRN 7 Days #20 tab PRN Reason: Severe Pain (6-10/10) Ibuprofen 600 mg PO 4X/DAY #30 tab Primary Care Physician: Care Physician,No Primary [Primary Care Provider] - Test Results: Test results from this visit will be discussed in further detail at your follow- up appointment, if applicable. Please Follow Up With: Chad Fuentes MD When: one week
[2017-12-22] MEDS: Bupivacaine Mpf 0.5% 30 ML VIAL (07:59)
--- NOTE | 2017-12-22 07:59 | PCM.OPRPT ---
Report of Operation Date of Procedure: 12/22/17 Pre-Operative Diagnosis: Desires permanent sterilization Post-Operative Diagnosis: Same Surgery/Procedure Performed:: Laparoscopic Bilateral Salpingectomy Description of Surgical Findings:: Normal appearing uterus, ovaries, and fallopian tubes. Normal appearing liver and stomach. No pelvic or abdominal adhesions noted. armor reconnaissance specialist: Bola Cat Type of Anesthesia:: General Anesthesiologist: Bulmaro Lundberg Special Medications: none Specimen's removed: Right and left fallopian tubes Drains: none Estimated Blood Loss (mL): minimal Fluids Replaced: 700cc LR Description of Procedure: Skyelalverto confirmed desire for permanent sterilization prior to the procedure. She was taken to the OR with IV running. She was given two grams of Cefotetan intravenously for surgical prophylaxis. SCDs were in place and operational from the preoperative area through surgery and into recovery. General anesthesia was introduced without complication. She was then prepped and draped in the dorsal lithotomy position. The bladder was drained. A uterine manipulator was then placed. Attention was then directed to the abdomen. A 5mm vertical incision was then made in the lower base of the umbilicus. The underlying subcutaneous tissue was dissected down to the level of facia using a Fariha clamp. The abdominal wall was then elevated and a Veress needle was placed through the umbilical defect into the abdominal cavity. The abdomen was then inflated with CO2 gas to 15 Torr. The Veress needle was removed and replaced with a 5mm trocar and sleeve. The trocar was removed and replaced with the laparoscope. Findings were as mentioned above. A left lower abdomen 5mm port was placed 3 cm below the level of the umbilicus lateral to the inferior epigastric vessels. A minilap alligator grasper was placed in the midline about 8 cm below the level of the umbilicus. Hemostasis was excellent after port placement.l The left fallopian tube was then grasped at the fimbriated end, elevated and dissected with the Ligasure device from the fimbriated end to the cornua of the uterus. The tube was then amputated. The tube was removed from the left port. In a similar fashion the right tube was removed. The trocars were then removed and gas evacuated. The skin incisions were closed with 4-0 Monocryl suture. The skin incision sites were injected with 10cc of 0.25% Marcaine. The uterine manipulator was removed. She was reversed from anesthesia and taken tot he recovery room in stable condition. Grafts/Implants Used: none - Complications none - Admit VTE Documentation VTE Present on Admission: No VTE Mechan Device Prophylaxis: SCD's VTE Pharm Prophylaxis ordered?: No
--- NOTE | 2017-12-22 08:14 | OP.PCM_ITS ---
Report of Operation Date of Procedure: 12/22/17 Pre-Operative Diagnosis: Desires permanent sterilization Post-Operative Diagnosis: Same Surgery/Procedure Performed:: Laparoscopic Bilateral Salpingectomy Description of Surgical Findings:: Normal appearing uterus, ovaries, and fallopian tubes. Normal appearing liver and stomach. No pelvic or abdominal adhesions noted. head of visual merchandising: Bola Cat Type of Anesthesia:: General Anesthesiologist: Bulmaro Lundberg Special Medications: none Specimen's removed: Right and left fallopian tubes Drains: none Estimated Blood Loss (mL): minimal Fluids Replaced: 700cc LR Description of Procedure: Skyelalverto confirmed desire for permanent sterilization prior to the procedure. She was taken to the OR with IV running. She was given two grams of Cefotetan intravenously for surgical prophylaxis. SCDs were in place and operational from the preoperative area through surgery and into recovery. General anesthesia was introduced without complication. She was then prepped and draped in the dorsal lithotomy position. The bladder was drained. A uterine manipulator was then placed. Attention was then directed to the abdomen. A 5mm vertical incision was then made in the lower base of the umbilicus. The underlying subcutaneous tissue was dissected down to the level of facia using a Fariha clamp. The abdominal wall was then elevated and a Veress needle was placed through the um bilical defect into the abdominal cavity. The abdomen was then inflated with CO2 gas to 15 Torr. The Veress needle was removed and replaced with a 5mm trocar and sleeve. The trocar was removed and replaced with the laparoscope. Findings were as mentioned above. A left lower abdomen 5mm port was placed 3 cm below the level of the umbilicus lateral to the inferior epigastric vessels. A minilap alligator grasper was placed in the midline about 8 cm below the level of the umbilicus. Hemostasis was excellent after port placement.l The left fallopian tube was then grasped at the fimbriated end, elevated and dissected with the Ligasure device from the fimbriated end to the cornua of the uterus. The tube was then amputated. The tube was removed from the left port. In a similar fashion the right tube was removed. The trocars were then removed and gas evacuated. The skin incisions were closed with 4-0 Monocryl suture. The skin incision sites were injected with 10cc of 0.25% Marcaine. The uterine manipulator was removed. She was reversed from anesthesia and taken tot he recovery room in stable condition. Grafts/Implants Used: none - Complications none - Admit VTE Documentation VTE Present on Admission: No VTE Mechan Device Prophylaxis: SCD's VTE Pharm Prophylaxis ordered?: No
[2017-12-22] MEDS: oxyCODONE 5 MG Tablet PO (09:31)
== END 2017-12-22 09:58 | disposition home or self-care (01) ==
LOC: SDC 05:51 → AC 05:51
PROVIDERS: Visit Provider Obstetrics & Gynecology
PROC: (CPT 58661; principal; 2017-12-22 07:15)
DX: Z30.2 Encounter for sterilization (principal); N83.8 Other noninflammatory disorders of ovary, fallopian tube and broad ligament; F32.9 Major depressive disorder, single episode, unspecified; F41.9 Anxiety disorder, unspecified; F17.200 Nicotine dependence, unspecified, uncomplicated
CPT/HCPCS: 58661; 36415; 81025; 84703; 85027; 85610; 85730; 86850; 86900; 88302; J7120; J2405

== ENCOUNTER 2018-08-09 13:18 | Emergency (ER) | payer MEDICAID, SELFPAY ==
[2018-08-09 13:19] VITALS: BP 126/69; PULSE 72; RESP 16; TEMP 36.9; O2SAT 100; BMI 20.5
--- NOTE | 2018-08-09 14:07 | ED.VISSUMM ---
- ER Visit Summary Date of Service: 08/09/18 Chief Complaint: Dental pain History of Present Illness: The patient is a 27 F who presents with dental pain over the right upper molar areas. Patient states the pain getting worse over the past 3 to 4 days. Patient describes the pain is sharp, burning, throbbing, and aching. Patient states the pain is not improved when she holds her head in certain positions. Patient admits to subjective fevers but did not take her temperature. Patient admits to hot and cold sensitivity. Patient denies any facial or jaw swelling. Physical Examination: Vital signs are stable. Patient is afebrile. Patient is in no acute distress. Oral mucosa is pink and moist. Oropharynx is clear. There is tenderness to percussion over the right upper premolars and molars. There is some mild gingival edema. There is no abscess formation. Neck is supple. Trachea is midline. No JVD or lymphadenopathy noted. Emergency Department Course and Treatment: Patient was given a dose of Pen-Vee K here. Patient was given a prescription for Pen-Vee K. Patient was also given a prescription for Naprosyn. Patient was instructed to follow-up with her dentist in 3 to 5 days. Patient understood and was agreeable with the plan. All questions were answered. Disposition: Discharge home Impression: Infected dental caries This note was generated with [employer] dictation software. It may contain incorrect words, spelling, and punctuation that were not noted in review of the chart prior to signing ED Disposition - Plan for ED Patient: Disposition: Home or Assisted Living Diagnosis: Infected dental caries Instructions: ED Cavity Dental Prescriptions: Naproxen [Naprosyn] 500 mg PO BID PRN #20 tab Penicillin V Potassium 500 mg PO 4X/DAY #40 tab Referrals: Care Physician,No Primary [Primary Care Provider] -
--- NOTE | 2018-08-09 14:12 | ED.DCSUM_ITS ---
- ER Visit Summary Date of Service: 08/09/18 Chief Complaint: Dental pain History of Present Illness: The patient is a 27 F who presents with dental pain over the right upper molar areas. Patient states the pain getting worse over the past 3 to 4 days. Patient describes the pain is sharp, burning, throbbing, and aching. Patient states the pain is not improved when she holds her head in certain positions. Patient admits to subjective fevers but did not take her temperature. Patient admits to hot and cold sensitivity. Patient denies any facial or jaw swelling. Physical Examination: Vital signs are stable. Patient is afebrile. Patient is in no acute distress. Oral mucosa is pink and moist. Oropharynx is clear. There is tenderness to percussion over the right upper premolars and molars. There is some mild gingival edema. There is no abscess formation. Neck is supp le. Trachea is midline. No JVD or lymphadenopathy noted. Emergency Department Course and Treatment: Patient was given a dose of Pen-Vee K here. Patient was given a prescription for Pen-Vee K. Patient was also given a prescription for Naprosyn. Patient was instructed to follow-up with her dentist in 3 to 5 days. Patient understood and was agreeable with the plan. All questions were answered. Disposition: Discharge home Impression: Infected dental caries This note was generated with [employer] dictation software. It may contain incorrect words, spelling, and punctuation that were not noted in review of the chart prior to signing ED Disposition - Plan for ED Patient: Disposition: Home or Assisted Living Diagnosis: Infected dental caries Instructions: ED Cavity Dental Prescriptions: Naproxen [Naprosyn] 500 mg PO BID PRN #20 tab Penicillin V Potassium 500 mg PO 4X/DAY #40 tab Referrals: Care Physician,No Primary [Primary Care Provider] -
[2018-08-09] MEDS: Penicillin Vk 250 MG Tablet 500 MG PO (14:32)
== END 2018-08-09 14:33 | disposition home or self-care (01) ==
LOC: ED 14:19
PROVIDERS: Emergency Provider Emergency Medicine
DX: K04.7 Periapical abscess without sinus (principal); K02.9 Dental caries, unspecified; R11.2 Nausea with vomiting, unspecified; R51 Headache; Z72.0 Tobacco use
CPT/HCPCS: 99283

== ENCOUNTER 2018-09-18 13:47 | Emergency (ER) | payer MEDICAID, SELFPAY ==
[2018-09-18 13:48] VITALS: BP 125/82; PULSE 98; RESP 16; TEMP 36.9; O2SAT 99; BMI 20.5
--- NOTE | 2018-09-18 14:41 | ED.VIS.GEN ---
History of Present Illness Chief Complaint: Nausea/Vomiting Informant: Patient Onset: Yesterday Narrative: Patient presents to the ED stating last night she was experiencing some epigastric discomfort which she attributed to heartburn. Following onset of her discomfort, she had one episode of coffee-ground emesis. Several hours following, she does have a normal bowel movement for the most part but it did have some black character to it. She since then has had no other episodes of emesis or bowel movements. She does report a slight epigastric discomfort, however it is nowhere near as severe as what it was last night. She has not taken anything for her symptoms. She denies any excessive use of NSAIDs. She did have several alcoholic beverages last night. She does have a history of hiatal hernia, however has not had an upper endoscopy done for approximately 10 years. She did have a colonoscopy done 4 years ago after having an episode of colitis. Past Medical History - Allergies and Home Meds Allergies/Adverse Reactions: Allergies fexofenadine HCl [From Melyssa] Adverse Reaction (Verified 09/18/18 13:47) Vomiting no allergy to tylenol hydrocodone bitartrate [From Vicodin] Adverse Reaction (Verified 09/18/18 13:47) Itching Primary Care Physician: Care Physician,No Primary [Primary Care Provider] - Smoking Status: Current every day smoker - Family History Maternal Family History: Reports: No pertinent history Review of Systems General: Denies: Chills, Fever, Sweats Eyes: Denies: Visual changes - bilaterally, Diplopia ENT: Denies: Rhinorrhea, Sore throat Cardiovascular: Denies: Chest pain, Palpitations Respiratory: Denies: Dyspnea, Cough, Dyspnea on exertion Gastrointestinal: Reports: Abdominal pain - Epigastric, Melena - x1, - - Coffee ground emesis x1. Denies: Nausea, Vomiting, Diarrhea Genitourinary: Denies: Dysuria, Hematuria, Frequency Musculoskeletal: Denies: Back pain, Extremity Pain Skin: Denies: Rash, Wounds Neurological: Denies: Headache, Weakness, Numbness Physical Exam Vital Signs/Narrative: Vital Signs Temp Pulse Resp BP Pulse Ox 09/18/18 13:48 98.4 F 98 16 125/82 H 99 General: Well nourished, Well developed, No Acute Distress Head: Normocephalic, Atraumatic Eyes: Perrl, EOMI ENT: Moist mucous membranes, No rhinorrhea Neck: Supple, Nontender Cardiovascular: Regular rate, Regular rhythm, No murmurs Respiratory: No distress, CTA bilaterally, Chest nontender Abdomen: Soft, Nondistended, Normal bowel sounds, Tender - Epigastric region, - - Negative Pettit sign. No right upper quadrant tenderness to palpation. No guarding, rigidity, rebound. Back: Nontender, Normal Inspection Extremities: Nontender, No edema Skin: Normal color, No rash Neurological: Alert, Oriented x3, Cranial nerves II-XII grossly intact, Normal Strength, Normal Sensation Psychological: Normal affect, Normal Mood Diagnostic/Tx/Re-eval - Medical Decision Making Patient presents to the ED with one episode of coffee-ground emesis and one episode of dark stool. She has had no other repeated episodes of these. She appears well and nontoxic upon presentation. She does have a history of hiatal hernia. CBC, PT, and lipase are unremarkable. Patient was educated her symptoms are most consistent with a gastritis. She will be placed on a PPI for the next 2 weeks and was given a referral to a PCP. She was educated on signs/symptoms to return to the ED. She was instructed to discuss potential EGD with her new PCP. She was educated on signs/symptoms to return to the ED. She was provided discharge instructions. She was agreeable to plan. See Dr. Martinez Attestation. Disposition: Home stable Impression: Gastritis ED Disposition - Plan for ED Patient: Disposition: Home or Assisted Living Diagnosis: Gastritis Instructions: GASTRITIS (Adult) Prescriptions: Omeprazole 40 mg PO QODAY #14 capsule. Prescription Printed Referrals: Care Physician,No Primary [Primary Care Provider] -
[2018-09-18 14:49] LABS: Absolute Lymphocyte Count 2.37 X10^3/ul (0.83-4.51); Absolute Neutrophil Count 3.9 X10^3/uL (2.0-7.7); Basophil# 0.01 X10^3/uL; Basophil% 0.1 % (0-1); Eosinophil# 0.07 X10^3/uL; Hemoglobin 14.8 g/dl (12.0-15.0); Lymphocyte # 2.37 X10^3/ul (4.0); Lymphocyte % 34.8 % (19-41); Mean Corp Hgb Conc 34.4 g/gl (32-36); Mean Corpuscular Hgb 31.6 pg (27.0-32.0); Mean Corpuscular Volume 91.9 fL (81-99); Monocyte% 7.3 % (0-10); Neutrophil # 3.86 X10^3/uL (2.7-7.7); Neutrophil % 56.7 % (47-70); POSITIVE COUNT NO; POSITIVE DIFFERENTIAL NO; POSITIVE MORPHOLOGY NO; Platelet Count 196 K/mm3 (150-450); RBC Distribution Width CV 13.4 % (11.6-14.6); RBC Distribution Width SD 44.3 fl (35.1-43.9); Red Blood Count 4.68 M/mm3 (4.2-5.4); White Blood Count 6.8 K/mm3 (4.4-11.0)
[2018-09-18 15:02] LABS: ALB/GLOB Ratio 1.1 RATIO (0.9-2.4); AST(SGOT) 17 U/L (15-37); Alanine Aminotransfer ALT/SGPT 19 U/L (13-56); Albumin, Serum 3.9 g/dL (3.2-5.0); Alkaline Phosphatase 60 U/L (45-117); Anion Gap 6 (5-15); BUN 10 mg/dL (7-18); BUN/Creat Ratio 14.1 RATIO (10-20); Calcium,Total 8.5 mg/dL (8.5-10.1); Chloride 104 mmol/L (98-107); Creatinine, Serum 0.71 mg/dL (0.55-1.02); EST Glomerular Filtration Rate 105 mL/min (>60); Est Glom Filt Rate - Afr Amer 127 mL/min (>60); Estimated Creatinine Clearance 115.06 ml/min; Globulin 3.5 g/dL (2.2-4.2); Glucose 81 mg/dL (74-106); Lipase 41 U/L (73-393); Potassium 3.4 mmol/L (3.5-5.1); Protein, Total 7.4 g/dL (6.4-8.2); Sodium Level 137 mmol/L (136-145)
[2018-09-18 16:01] VITALS: BP 110/70; PULSE 65; RESP 117; RESP 18
== END 2018-09-18 16:02 | disposition home or self-care (01) ==
PROVIDERS: Emergency Provider Physician Assistant
DX: K29.70 Gastritis, unspecified, without bleeding (principal); F17.200 Nicotine dependence, unspecified, uncomplicated; Z88.5 Allergy status to narcotic agent
CPT/HCPCS: 80053; 83690; 85025; 99283; A4216

== ENCOUNTER 2022-05-19 17:58 | Emergency (ER) | payer MEDICAID, SELFPAY ==
[2022-05-19 17:58] VITALS: BP 120/75; PULSE 93; RESP 16; TEMP 36.6; O2SAT 98; BMI 19.8
--- NOTE | 2022-05-19 18:34 | EDS_ITS ---
HPI History of Present Illness Chief Complaint: Complaint Informant: patient Onset/Context/Timing Onset: Today Context: Gradual Onset Timing: Continuous Quality: Sharp, aching Location: Left lower abdomen and low back Worsened by: Sitting Relieved by: Laying on her side, and heating pad Narrative Narrative: Patient presents with left lower abdominal pain that began today. Patient patient states it is gradually getting worse. Patient describes the pain as sharp and aching. Patient states the pain is over the left lower abdomen and radiates into her left flank and back area. Patient states it is worse with sitting. Patient states it is better with laying on her side and with a heating pad. Patient admits to some pressure with urination but denies any burning with urination. Patient admits to some urinary frequency. Patient admits to nausea but denies any vomiting. Patient admits to some diarrhea but denies any melena or hematochezia. Patient denies any fevers or chills. PFSH PFS Medical History (Updated 05/19/22 @ 21:[address] Jah Ellis DO) Acute streptococcal pharyngitis Allergy/AdvReac Type Severity Reaction Status Date / Time fexofenadine HCl AdvReac Vomiting Verified 05/19/22 18:00 [From Melyssa] hydrocodone bitartrate AdvReac Itching Verified 05/19/22 18:00 [From Vicodin] Surgical History (Updated 05/19/22 @ 18:[address] Jah Ellis DO) History of appendectomy History of bilateral tubal ligation Hx of tonsillectomy Social History Smoking Status: Current every day smoker tobacco type: cigarettes ROS ROS ED Constitutional Constitutional ED: Denies chills or fever(s) Eyes Eyes: Denies blurry vision or change in vision ENT ENT ED: Denies rhinorrhea or sore throat Cardiovascular Cardiovascular: Denies chest pain or palpitations Respiratory/Chest Respiratory/Chest: Denies cough or dyspnea Gastrointestinal Gastrointestinal: Reports abdominal pain, diarrhea and nausea; Denies vomiting Genitourinary Genitourinary ED: Reports urinary frequency; Denies dysuria or hematuria Musculoskeletal Musculoskeletal: Reports back pain; Denies neck pain Integumentary Denies abscess or rash Neurologic Neurologic: Denies headache(s) or weakness Allergic/Immunologic Allergic/Immunologic ED: Denies mouth swelling or urticaria EXAM Physical Exam Const Vital Signs: 05/19/22 17:58 Temperature 98 F Temperature Source Temporal Pulse Rate 93 Respiratory Rate 16 Blood Pressure 120/75 Blood Pressure Mean 90 Pulse Ox 98 Oxygen Delivery Method Room Air Positive well nourished and well developed General Appearance ED: well developed HEENT Reports moist mucous membranes Neck supple and no JVD Resp normal respiratory effort and clear to auscultation bilaterally Cardio regular rate, regular rhythm and no murmurs GI normal to inspection, nondistended, normoactive bowel sounds Palpation: soft and tender LLQ; Negative for guarding or rebound tenderness present Back/Spine General Back: CVA tenderness left Extremity normal to inspection General Extremety ED: Negative for edema or tenderness General Extremity: Negative for edema Neuro oriented x3, CN's II-XII intact bilaterally and no sensory deficits noted Sensorium / Orientation: alert Motor Exam: strength 5/5 throughout Psych mental status grossly normal Skin no rashes or lesions noted MDM MDM MDM Narrative Medical decision making narrative: Differential diagnosis includes urinary tract infection, ureteral calculus, ovarian cyst, ovarian torsion, bowel obstruction, perforation, diverticulitis, and gastroenteritis. CBC will be obtained to assess for leukocytosis and anemia. Comprehensive metabolic profile will be obtained to assess for electrolyte abnormality, renal function, and hepatic function. Urinalysis will be obtained to assess for urinary tract infection and hematuria. Serum hCG will be obtained to assess for . CT scan of the abdomen pelvis will be obtained to assess for bowel obstruction, perforation, diverticulitis, and ureteral calculus. Lab Data Attestation: I reviewed the patient's lab results. Lab results narrative: CBC was reviewed and was within normal limits. Comprehensive metabolic profile was reviewed and was within normal limits. Serum hCG was reviewed and was negative. Urinalysis was reviewed. There is no evidence of urinary tract infection or hematuria. Labs: Laboratory Results - last 24 hr 05/19/22 05/19/22 05/19/22 18:30 18:30 18:30 WBC 8.7 RBC 4.35 Hgb 13.7 Hct 39.7 MCV 91.3 MCH 31.5 MCHC 34.5 RDW Std Deviation 44.2 H RDW Coeff of Dawna 13.2 Plt Count 184 MPV 10.5 Immature Gran % (Auto) 0.300 Neut % (Auto) 58.2 Lymph % (Auto) 32.1 Ripley % (Auto) 6.2 Eos % (Auto) 2.7 Baso % (Auto) 0.5 Absolute Neuts (auto) 5.0 Absolute Lymphs (auto) 2.78 Nucleated RBC % 0 Sodium 141 Potassium 3.5 Chloride 106 Carbon Dioxide 29.0 Anion Gap 6 BUN 9 Creatinine 0.73 Estim Creat Clear Calc 104.24 Est GFR (MDRD) Af Amer 119 Est GFR (MDRD) Non-Af 98 BUN/Creatinine Ratio 12.3 Glucose 103 Calcium 8.7 Total Bilirubin 0.30 AST 9 L ALT 14 Alkaline Phosphatase 54 Total Protein 7.2 Albumin 3.7 Globulin 3.5 Albumin/Globulin Ratio 1.1 Serum , Qual NEGATIVE Urine Color Urine Clarity Urine pH Ur Specific Wallace Urine Protein Urine Glucose (UA) Urine Ketones Urine Occult Blood Urine Nitrite Urine Bilirubin Urine Urobilinogen Ur Leukocyte Esterase Urine RBC Urine WBC Ur Squamous Epith Cells Urine Bacteria Urine Mucus 05/19/22 18:30 WBC RBC Hgb Hct MCV MCH MCHC RDW Std Deviation RDW Coeff of Dawna Plt Count MPV Immature Gran % (Auto) Neut % (Auto) Lymph % (Auto) Ripley % (Auto) Eos % (Auto) Baso % (Auto) Absolute Neuts (auto) Absolute Lymphs (auto) Nucleated RBC % Sodium Potassium Chloride Carbon Dioxide Anion Gap BUN Creatinine Estim Creat Clear Calc Est GFR (MDRD) Af Amer Est GFR (MDRD) Non-Af BUN/Creatinine Ratio Glucose Calcium Total Bilirubin AST ALT Alkaline Phosphatase Total Protein Albumin Globulin Albumin/Globulin Ratio Serum , Qual Urine Color Yellow Urine Clarity Clear Urine pH 5.0 Ur Specific Wallace 1.025 Urine Protein Negative Urine Glucose (UA) Normal Urine Ketones 5 H Urine Occult Blood Negative Urine Nitrite Negative Urine Bilirubin Negative Urine Urobilinogen 1 H Ur Leukocyte Esterase 25 H Urine RBC 0 SEEN Urine WBC 0-5 SEEN Ur Squamous Epith Cells 0-5 SEEN Urine Bacteria 1+ Urine Mucus 0 SEEN Radiography Diagnostic Testing: Clinical Impression(s) from Imaging Studies Abdomen/Pelvis CT 05/19/22 18:39 IMPRESSION: 1. Resolution of right ovarian cyst seen on the earlier study. 2. Normal CT of the abdomen and pelvis. Electronically Signed: Bill Tsang DO at 20:18 EST Reading Location ID and State: [facility] / [place] Tel [phone], Service support , CT scan of the abdomen pelvis was obtained. There is no acute abnormality. There is no free fluid or free air. There is resolution of a right ovarian cyst. That was seen on a previous study. This was interpreted by the radiologist and was also independently reviewed by myself. Treatment and Re-Evaluation Narrative: Patient was given IV fluids, morphine, and Zofran. Patient is feeling better on reevaluation. Patient was advised of her findings. Patient was instructed to take Tylenol or ibuprofen as needed for pain. Patient was instructed to follow- up with her primary care physician in 5 to 7 days. Patient was instructed return if worse in any way. Patient understood and was agreeable with the plan. All questions were answered. Discharge Plan Triage Chief Complaint: Complaint ED Provider: Jah Ellis Dx/Rx/DC Orders Clinical Impression: Left lower quadrant abdominal pain, Pelvic pain Instructions: ED Pelvic Pain, Unknown Cause Primary Care Provider: Magdalena Rebollar NP Referrals: Magdalena Rebollar NP, EQUIPMENT W[employer]ER-[employer] [Primary Care Provider] - 5-7 Days Disposition Disposition: Home, Self Care
--- NOTE | 2022-05-19 18:39 | CT_ITS ---
STUDY: CT ABDOMEN AND PELVIS WITHOUT CONTRAST REASON FOR EXAM: Female, 31 years old. Abdominal pain. RADIATION DOSAGE (If Supplied By Facility): CTDIvol = ( ) mGy, DLP = ( 323.61 ) mGycm TECHNIQUE: Transaxial images were obtained from the dome of the diaphragm to the symphysis pubis without oral contrast, and without intravenous contrast. Sagittal and coronal images were reconstructed. Individualized dose optimization techniques were used for this CT. COMPARISON: October 01, 2015. FINDINGS: The visualized lung bases are unremarkable. The visualized portions of the heart are within normal limits. Normal liver. Normal gallbladder and extrahepatic biliary system. Normal spleen. Normal pancreas. Normal bilateral adrenal glands. Normal right kidney. Normal left kidney. Normal visualized stomach. Normal small intestine. Normal colon. There are surgical clips in the right lower quadrant. Question prior appendectomy. Normal abdominal aorta. Normal inferior vena cava. Normal retroperitoneum. Normal urinary bladder. A normal uterus. Normal adnexa. No pelvic lymphadenopathy. No free air or free fluid is seen within the peritoneal cavity. Normal abdominal wall. Normal osseous structures. CT/Abdomen/Pelvis without Cont IMPRESSION: 1. Resolution of right ovarian cyst seen on the earlier study. 2. Normal CT of the abdomen and pelvis. Electronically Signed: Bill Tsang DO at 20:18 EST Reading Location ID and State: [id number] Tel [phone], Service support ,
[2022-05-19] MEDS: 0.9% Normal Saline 1,000 ML 1000 ML IV (18:51)
[2022-05-19] MEDS: Morphine 4 MG/ML Syringe IV (18:51)
[2022-05-19] MEDS: Ondansetron 4 MG/2 ML Vial IV (18:51)
[2022-05-19 19:22] LABS: Mucous, Urine 0 SEEN /hpf (<or=2+); Red Blood Cells-Urine 0 SEEN /hpf (0-5)
[2022-05-19 19:23] LABS: Absolute Lymphocyte Count 2.78 X10^3/uL (0.83-4.51); Basophil# 0.04 X10^3/uL; Basophil% 0.5 % (0-1); Eosinophil# 0.23 X10^3/uL; Eosinophils% 2.7 % (0-5); Hematocrit 39.7 % (37-47); Hemoglobin 13.7 g/dL (12.0-15.0); Lymphocyte # 2.78 X10^3/ul (0.83-4.51); Lymphocyte % 32.1 % (19-41); Mean Corp Hgb Conc 34.5 g/dL (32-36); Mean Corpuscular Hgb 31.5 pg (27.0-32.0); Mean Corpuscular Volume 91.3 fL (81-99); Mean Platelet Vol. 10.5 fl (6.2-12.0); Monocyte# 0.54 X10^3/uL; Monocyte% 6.2 % (0-10); NRBC Flagged by Analyzer 0 % (0-5); Neutrophil # 5.04 X10^3/uL (2.7-7.7); Neutrophil % 58.2 % (47-70); Platelet Count 184 K/mm3 (150-450); RBC Distribution Width CV 13.2 % (11.6-14.6); RBC Distribution Width SD 44.2 fl (35.1-43.9); Red Blood Count 4.35 M/mm3 (4.2-5.4); White Blood Count 8.7 K/mm3 (4.4-11.0)
[2022-05-19 19:24] LABS: Color, Urine Yellow (Yellow); Glucose, Dipstick Normal (Normal); Ketone-Dipstick 5 mg/dl (Negative); Leukocyte Esterase-Dipstick 25 /ul (Negative); Nitrite-Dipstick Negative (Negative); Occult Blood-Urine Negative /ul (Negative); Protein-Dipstick Negative (Negative); Specific Gravity, Urine 1.025 (1.002-1.030); Urine Bilirubin Dipstick Negative (Negative); Urine Clarity Clear (Clear); Urine Urobilinogen 1 mg/dl (Normal)
[2022-05-19 19:36] LABS: Internal QC Validated? YES +Cl - CLEAR BKGD; Pregnancy, Serum, hCG Quali. NEGATIVE Negative
[2022-05-19 19:37] LABS: Bacteria 1+ /hpf (None Seen); Squamous Epithelial Cells - UA 0-5 SEEN /hpf (5-10); White Blood Cells 0-5 SEEN /hpf (0-5)
[2022-05-19 19:39] LABS: ALB/GLOB Ratio 1.1 RATIO (0.9-2.4); AST(SGOT) 9 U/L (15-37); Alanine Aminotransfer ALT/SGPT 14 U/L (13-56); Albumin, Serum 3.7 g/dL (3.2-5.0); Alkaline Phosphatase 54 U/L (45-117); Anion Gap 6 (5-15); BUN 9 mg/dL (7-18); BUN/Creat Ratio 12.3 RATIO (10-20); Calcium,Total 8.7 mg/dL (8.5-10.1); Chloride 106 mmol/L (98-107); Creatinine, Serum 0.73 mg/dL (0.55-1.02); EST Glomerular Filtration Rate 98 mL/min (>60); Est Glom Filt Rate - Afr Amer 119 mL/min (>60); Estimated Creatinine Clearance 104.24 ml/min; Globulin 3.5 g/dL (2.2-4.2); Glucose 103 mg/dL (74-106); Potassium 3.5 mmol/L (3.5-5.1); Protein, Total 7.2 g/dL (6.4-8.2); Sodium Level 141 mmol/L (136-145)
[2022-05-19 22:07] VITALS: BP 122/89; PULSE 74; RESP 17; O2SAT 100
== END 2022-05-19 22:08 | disposition home or self-care (01) ==
PROVIDERS: Emergency Provider Emergency Medicine; PCP Nurse Practitioner Family; Visit Provider Emergency Medicine
DX: R10.32 Left lower quadrant pain (principal); R10.2 Pelvic and perineal pain; F17.210 Nicotine dependence, cigarettes, uncomplicated
CPT/HCPCS: 74176; 80053; 81001; 84703; 85025; 96361; 96374; 96375; 99283; J7030; J2405

== ENCOUNTER 2022-09-09 17:23 | Emergency (ER) | payer MEDICAID, SELFPAY ==
[2022-09-09 17:24] VITALS: BP 122/73; PULSE 93; RESP 14; TEMP 36.1; O2SAT 100; BMI 20.3
--- NOTE | 2022-09-09 17:32 | RAD_ITS ---
STUDY: X-RAY - LEFT FOOT CLINICAL: Female, 31 years old. ro FB TECHNIQUE: 3 view(s) of the foot. COMPARISON: None. FINDINGS: Normal talus, calcaneus, and tarsal bones. Normal visualized subtalar, talonavicular, calcaneocuboid, tarsal and tarsometatarsal articulations. Normal metatarsi. Normal metatarsophalangeal joint of the great toe. Normal tibial and fibular sesamoid bones. Normal interphalangeal joint of the great toe. Normal phalanges of the great toe. Normal second through fifth metatarsophalangeal joints. Normal interphalangeal joints and phalanges of the lesser toes. The soft tissue structures are unremarkable. There is no demonstrated fracture. RAD/Foot min 3 Views IMPRESSION: Normal x-ray examination of the foot. Electronically Signed: Desean Meyers MD at 18:05 EDT ,
--- NOTE | 2022-09-09 17:35 | EDS_ITS ---
HPI History of Present Illness Chief Complaint: Laceration Detail of Chief Complaint: Puncture wound to left foot Informant: patient Narrative Narrative: Patient presents to the emergency department after sustaining a puncture wound to her left foot today. Patient states that she had just come home from work and was in her socks when she accidentally stepped on a toothpick which punctured her foot. She was able to remove the toothpick that had been embedded in her foot and appeared to be in 1 piece. Half of the toothpick had broken off and was on the floor when she stepped on it. Patient complaining of pain with standing and walking. She is up-to-date on tetanus. [facility] Medical History (Updated 09/09/22 @ 17:[address] Berenice Jerome DO) Acute bronchitis, unspecified Acute streptococcal pharyngitis URI (upper respiratory infection) Home Medications azithromycin 250 mg tablet 250 mg PO QDAY #6 tabs 05/28/22 [Rx Last Taken Unknown] prednisone 10 mg tablet 10 mg PO BID #10 tabs 05/28/22 [Rx Last Taken Unknown] cephalexin 500 mg capsule 500 mg PO Q6 #40 CAPSULES 09/09/22 [Rx Last Taken Unknown] Allergy/AdvReac Type Severity Reaction Status Date / Time fexofenadine HCl AdvReac Vomiting Verified 09/09/22 17:24 [From Melyssa] hydrocodone bitartrate AdvReac Itching Verified 09/09/22 17:24 [From Vicodin] Surgical History (Updated 05/19/22 @ 18:[address] Jah Ellis DO) History of appendectomy History of bilateral tubal ligation Hx of tonsillectomy Social History Smoking Status: Current every day smoker tobacco type: cigarettes ROS ROS ED Review of Systems ROS Unobtainable: other Constitutional Constitutional ED: Reports lethargy; Denies chills, fever(s), sweats or weight loss Eyes Eyes: Denies blurry vision, change in vision or diplopia ENT ENT ED: Denies rhinorrhea or sore throat Cardiovascular Cardiovascular: Denies chest pain, orthopnea or racing heartbeat Respiratory/Chest Respiratory/Chest: Denies cough, dyspnea, dyspnea on exertion, orthopnea or sputum Gastrointestinal Gastrointestinal: Denies abdominal pain, diarrhea, nausea or vomiting Genitourinary Genitourinary ED: Denies dysuria, hematuria or urinary frequency Musculoskeletal Musculoskeletal: Reports other Details: Left foot pain/puncture wound ; Denies arthralgias, back pain, myalgias or neck pain Integumentary Denies abscess, Abrasions or rash Neurologic Neurologic: Denies headache(s) or weakness Psychiatric Psychiatric: Denies anxiety, depression or suicidal thoughts Endocrine Endocrinology: Denies polydipsia, polyphagia or polyuria Hematologic/Lymphatic Hematologic/Lymphatic: Denies easy bleeding, easy bruising or lymphadenopathy Allergic/Immunologic Allergic/Immunologic ED: Denies mouth swelling, tongue swelling or urticaria EXAM Physical Exam Const Vital Signs: 09/09/22 17:24 Temperature 97 F L Temperature Source Temporal Pulse Rate 93 Respiratory Rate 14 Blood Pressure 122/73 H Blood Pressure Mean 89 Pulse Ox 100 Oxygen Delivery Method Room Air Positive well nourished and well developed General Appearance ED: well developed and NAD HEENT Reports TM's clear and moist mucous membranes normocephalic and atraumatic; Negative for trauma or tenderness Tympanic Membrane ED: Yes TM's clear Eyes PERRL and EOMs intact bilaterally General Eye ED: Negative for pale conjunctiva or scleral icterus Neck no lymphadenopathy, supple and no JVD General: Negative for tenderness Chest Wall inspection of chest normal and palpation of chest normal Chest: Negative for tenderness Resp normal respiratory effort and clear to auscultation bilaterally Effort and Inspection: Negative for respiratory distress or pain with movement Auscultation: Negative for rhonchi, wheezes or diminished lung sounds Cardio regular rate, regular rhythm, S1 normal heart sound, S2 normal heart sound and no murmurs Peripheral Pulses: pulses 2+ throughout GI normal to inspection, nondistended, normoactive bowel sounds, soft to palpation, non-tender, non-distended and no masses Back/Spine no CVA tenderness and no thoracic nor lumbar tenderness Extremity Extremity Narrative: Left foot-patient has a small puncture wound over the plantar aspect of the third MTP joint. No foreign body palpated within the wound. She is able to move her toes without difficulty. She is neurovascular intact. No purulent drainage noted. No significant erythema. General Extremety ED: Negative for edema General Extremity: Negative for edema Neuro oriented x3, CN's II-XII intact bilaterally, no sensory deficits noted and gait normal Sensorium / Orientation: awake, alert, oriented to person, oriented to place and oriented to time Motor Exam: strength 5/5 throughout and strength abnormal Psych mental status grossly normal Skin no rashes or lesions noted and no wounds MDM MDM MDM Narrative Medical decision making narrative: Patient did bring a picture of the toothpick that was removed from her foot and it does appear to be intact near the distal tip. We will obtain a x-ray and attempt to rule out any foreign body although if this is what it may not show up on an x-ray she understands this. I will start her on Keflex. On my interpretation of the x-ray do not appreciate any foreign bodies within the wound. There is no gas within the wound. Patient will be started Keflex. She will be given a referral to follow-up with primary care physician within next 3 to 5 days. She is advised to return if increasing pain, redness, swelling, purulent drainage, or condition worsening way. Radiography Diagnostic Testing: Three-view x-rays of the left foot obtained interpreted by myself as no evidence of a foreign body or fractures or dislocations Discharge Plan Triage Chief Complaint: Laceration ED Provider: Berenice Jerome Dx/Rx/DC Orders Clinical Impression: Puncture wound of left foot Instructions: ED Puncture Wound (Foot) Prescriptions: New cephalexin [cephalexin] 500 mg capsule 500 mg PO Q6 Qty: 40 0RF No Action azithromycin 250 mg tablet 250 mg PO QDAY Qty: 6 0RF Rx Instructions: 2 tablets today, then 1 tablet daily on days 2 through 5 prednisone 10 mg tablet 10 mg PO BID Qty: 10 0RF Primary Care Provider: Magdalena Rebollar NP Referrals: Magdalena Rebollar NP, TEAM PSYCHOLOGIST-C [Primary Care Provider] - 3-5 Days Disposition Disposition: Home, Self Care
[2022-09-09] MEDS: Cephalexin 250 MG Capsule 500 MG PO (17:59)
== END 2022-09-09 18:07 | disposition home or self-care (01) ==
PROVIDERS: Emergency Provider Emergency Medicine; PCP Nurse Practitioner Family; Visit Provider Emergency Medicine
DX: S91.332A Puncture wound without foreign body, left foot, initial encounter (principal); F17.210 Nicotine dependence, cigarettes, uncomplicated; X58.XXXA Exposure to other specified factors, initial encounter
CPT/HCPCS: 73630; 99283